=== PATIENT | female | born 1965 | race Caucasian/White ===

== ENCOUNTER → 2016-05-22 | Outpatient (CLI) | payer OTHER | LOC: BRMIMAGING 12:29 | DX: M25.521 Pain in right elbow (principal); M54.6 Pain in thoracic spine; M50.021 Cervical disc disorder at C4-C5 level with myelopathy | CPT/HCPCS: 72040-PO; 72072-PO; 73080-PO ==

== ENCOUNTER → 2016-06-08 | Outpatient (CLI) | payer OTHER | LOC: BRMIMAGING 11:00 | PROVIDERS: ATTEND Internal Medicine | DX: M99.71 Connective tissue and disc stenosis of intervertebral foramina of cervical region (principal) | CPT/HCPCS: 72040-PO ==

== ENCOUNTER → 2016-06-19 | Outpatient (CLI) | payer OTHER | LOC: BRMIMAGING 10:35 | PROVIDERS: ATTEND Internal Medicine | DX: M79.645 Pain in left finger(s) (principal) | CPT/HCPCS: 73110-PO ==